=== PATIENT | male | born 1980 | race African-American/Black ===

== ENCOUNTER 2020-11-07 01:38 | Inpatient (IN) | payer OTHER ==
[2020-11-07] VITALS (84 sets, daily range): BP systolic 100–145; BP diastolic 66–94
[~2020-11-07] VITALS: Ht 182.9 cm; Wt 91.4 kg
--- NOTE | ~2020-11-07 | EEG ---
[facility] [place] [address] ELECTROENCEPHALOGRAM Name: RAH OVALLE Room #: 236-P ADM IN M.R.#: [id number] Admission: 11/07/20 Attend Phys: Jose E Patel MD Discharge: Date of : 80 Report #: [id number] THIS REPORT FOR: //name// DATE OF SERVICE: 11/07/2020 This patient is being evaluated for the possibility of seizures after cardiac arrest. EEG was done when the patient is on sedation. EEG was done by placing the electrode by standard 10-20 system of electrode placement. Both referential and sequential montages were used for recording. Background activity is difficult to determine because there is low voltage and barely perceptible but the patient is on sedation. Intermittently, the patient continued to have epileptiform activities. Some suggestion of burst suppression is present, but is not typical for burst suppression. IMPRESSION: This is an abnormal EEG because of very low voltage activity is present and epileptiform activity also appeared to be present. Clinical correlation is recommended. By: [id number] Thanh Damon MD /nt
--- NOTE | ~2020-11-07 | HC ---
[facility] [place] [address] CONSULTATION Name: RAH OVALLE JR Room #: 236-P ADM IN M.R.#: [id number] Admission: 11/07/20 Attend Phys: Jose E Patel MD Discharge: Date of : 80 Report #: [id number] THIS REPORT FOR: cc: FAM - Family physician unknown FAM - Family physician unknown Thanh Damon MD ~ DATE OF SERVICE: 11/07/2020 HISTORY OF PRESENT ILLNESS: This 40-year-old male patient who was seen by me for hypoxic encephalopathy. This patient has a history of polysubstance abuse. He has a cardiac arrest with significant amount of downtime. He is having some unusual movement of the eyes and body, which is difficult to tell if it was posturing or any seizure activity. The patient is on benzodiazepine and he is also on propofol. In spite of that, he is having those activity. He is also on Keppra. REVIEW OF SYSTEMS: From the record, it looks like the patient has a history of polysubstance abuse. He smokes as well as drink alcohol. He had what looks like a cardiac arrest with prolonged downtime. Now, he is on hypothermia protocol. This was his relevant 14-point review of system, which is available. PAST MEDICAL HISTORY: Unavailable in this patient, but looks like he has polysubstance abuse for a long period of time. SOCIAL HISTORY: He smokes or drinks and use drugs. FAMILY HISTORY: Unavailable. PHYSICAL EXAMINATION: Pretty limited. He is unresponsive to pain and verbal stimuli. Cranial nerve examination was attempted. His pupils are pinpoint and does not appear to be reactive. He has no plantar and in fact has no response or reflexes. He is intubated. He is on a vent. His blood pressure is maintained at 114/81, the white count is 9.3. He did have a CT scan of the head on admission and that appeared to be showing some early edema even at early stage. His respirations 16, pulse is 48, temperature is 98.5 because he is on hypothermia protocol. LABORATORY DATA: His WBC count is normal. GFR is normal. IMPRESSION: This patient appeared to have hypoxic encephalopathy. He will need a repeat CT in 24-48 hours to see how his edema looks. We will get an EEG even if he is on hypothermia protocol to see if any seizure activity is going on. If no seizure activity is there we will consider posturing and if seizure activity is there, then we will treat more aggressively. Nurses tell me it is difficult to increase his propofol because his vital sign becomes altered. [place] [address] CONSULTATION Name: RAH OVALLE KANDI Room #: 236-P [facility] IN M.R.#: [id number] Admission: 11/07/20 Attend Phys: Jose E Patel MD Discharge: Date of : 80 Report #: [id number] put him on Depakote. We will await the EEG. Thank you very much for this referral. By: 1226 [id number] Thanh Damon MD /nt
[~2020-11-07 01:38] MED LIST: FLEXERIL PO; HALDOL5 MG/1 ML IJ; IBUPROFEN 800800 M1 PO; NORCO 5-325 TA1 EACH PO
[2020-11-07 01:57] LABS: HEMATOCRIT 42.4 % (42.0-52.0); MCH 31.1 pg (26.0-34.0); MCV 94.1 fL (80.0-100.0); PLATELET COUNT 271 thou/uL (150-400); RDW 14.9 % (10.5-14.5); WBC 8.2 thou/uL (4.0-11.0)
[2020-11-07 02:11] LABS: BE(vivo) -12.8 mmol/L (-2 to +3); HCO3 16.6 mmol/L (22.0-26.0); pH 7.122 (7.360-7.450); sO2 99.6 % (92.0-98.0)
[2020-11-07 02:11] LABS: INR 1.02; PROTIME 11.1 Seconds (9.3-11.4)
[2020-11-07 02:15] LABS: ALBUMIN 3.5 g/dL (3.4-5.0); ANION GAP 21 mmol/L (7-16); BUN 13 mg/dL (7-18); CALCIUM 8.3 mg/dL (8.5-10.1); CHLORIDE 101 mmol/L (98-107); CO2 22 mmol/L (21-32); GLUCOSE 265 mg/dL (74-106); SGOT 156 U/L (15-37); SGPT 199 U/L (16-63); SODIUM 144 mmol/L (136-145); TOTAL BILIRUBIN 0.2 mg/dL (0.2-1.0); TOTAL PROTEIN 7.3 g/dL (6.4-8.2); TROPONIN-I <0.06 ng/mL (<0.06)
[2020-11-07 02:18] LABS: POTASSIUM 2.8 mmol/L (3.5-5.1)
[2020-11-07] MEDS ORDERED: DIVALPROEX SOD500 M1 PO (02:57)
[2020-11-07] MEDS ORDERED: BENZTROPINE MES1 MG PO (02:57)
[2020-11-07] MEDS ORDERED: PROAIR HFA8.5 GM INH (02:57)
[2020-11-07] MEDS ORDERED: CLARITIN10 M3 PO (02:58)
--- NOTE | 2020-11-07 02:58 | NUR ---
IV #4-#18 RIGHT FOREARM, IV#5-#20 RIGHT WRIST. ALL PLACED WITH 1 STICK, TRANS- PARENT DRESSINGS WITH PUMPS IN PLACE.
[2020-11-07 03:24] LABS: ABSOLUTE NEUTROPHILS 2.2 thou/uL (1.4-8.2)
[2020-11-07 03:25] LABS: PLATELET ESTIMATE NORMAL
[2020-11-07 03:49] LABS: HCO3 24.6 mmol/L (22.0-26.0); PCO2 32.7 mmHg (35.0-45.0); PO2 85.6 mmHg (80.0-100.0); pH 7.494 (7.360-7.450); sO2 97.2 % (92.0-98.0)
[2020-11-07 05:51] LABS: ABSOLUTE NEUTROPHILS 5.9 thou/uL (1.4-8.2); BASOPHILS 0.4 % (0.0-2.0); EOSINOPHILS 0.2 % (0.0-3.0); HEMATOCRIT 46.2 % (42.0-52.0); HEMOGLOBIN 15.4 gm/dL (14.0-18.0); LYMPHOCYTES 10.7 % (24.0-44.0); MCH 30.7 pg (26.0-34.0); MCHC 33.3 g/dL (28.0-37.0); MCV 92.3 fL (80.0-100.0); MONOCYTES 3.7 % (1.0-8.0); PLATELET COUNT 268 thou/uL (150-400); RDW 14.6 % (10.5-14.5); WBC 6.9 thou/uL (4.0-11.0)
[2020-11-07 06:01] LABS: CALCIUM 8.3 mg/dL (8.5-10.1); CREATININE 1.6 mg/dL (0.7-1.3)
[2020-11-07 06:10] LABS: MAGNESIUM 1.8 mg/dL (1.8-2.4); PHOSPHORUS 3.3 mg/dL (2.5-4.9)
[2020-11-07 06:14] LABS: POTASSIUM 4.8 mmol/L (3.5-5.1)
--- NOTE | 2020-11-07 06:14 | NUR ---
PT ARRIVED TO ICU FROM ER APPROX 0445, INTUBATED, ON PROPOFOL GTT AT 15 MCG/KG/MIN, EYES RHYTHMICALLY MOVING UP AND DOWN/BLINKING, ARMS AND LEGS JERKING INTERMITTENTLY. TEMP 33.8 ON ARRIVAL VIA ANDINO TEMP PROBE. PLACED ON ARTIC SUN PER ORDERS FROM FERMIN RODRIGUEZ, SA 60-70'S, BP STABLE 120'S. NOTIFIED MICHAEL OF SEIZURE ACTIVITY, GAVE 2MG ATIVAN IV, JERKING HAS SLOWED. PENDING LABS AT THIS TIME
[2020-11-07 06:15] LABS: TROPONIN-I 0.85 ng/mL (<0.06)
--- NOTE | 2020-11-07 06:56 | NUR ---
spoke with mother, gave update, policy regarding visitation and authorized contact
--- NOTE | 2020-11-07 07:04 | EKG ---
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 : 1980 Requested By: Ness Araujo Order Number: [id number] MD: Reji Dooley Measurements Intervals [place] Rate: 106 P: 0 WY: 262 QRS: 33 QRSD: 100 T: 5 QT: 271 QTc: 360 Interpretive Statements Sinus tachycardia Prolonged WY interval Right atrial enlargement RSR' in V1 or V2, probably normal variant Probable left ventricular hypertrophy Borderline T abnormalities, inferior leads No previous ECG available for comparison Electronically Signed On 11-07-2020 7:04:15 CDT by Reji Dooley [email or web address] <ELECTRONICALLY SIGNED> By: Reji Dooley MD, [facility] 11/07/20 0704 014 014 Reji Dooley MD, FACC /EPI
--- NOTE | 2020-11-07 07:20 | NUR ---
RN CAME ONTO THE UNIT, CXR REPORT AWAITING. RN CALLED RADIOLOGY, SPOKE WITH CXR TECH MYLENE. PER PRELIM REPORT ET/GTUBE BOTH IN GOOD POSITION. RN PROCEEDING WITH USAGE.
[2020-11-07 07:26] LABS: APTT 21.9 Seconds (24.5-32.8); PROTIME 10.3 Seconds (9.3-11.4)
--- NOTE | 2020-11-07 08:31 | NUR ---
chart review. outside hospital cardiac arrest, with friends with when went down. in via ambulance to ed. remains on vent. noted lives with his mother. will cont following as needed for dc needs.
[2020-11-07 08:42] LABS: D-DIMER 8.56 ug/mLFEU (0.19-0.50)
--- NOTE | 2020-11-07 09:23 | EKG ---
[address] [place] [address] ELECTROCARDIOGRAM REPORT Name: RAH OVALLE Room #: 236-P ADM IN M.R.#: [id number] Admission: 11/07/20 Attend Phys: Jose E Patel MD Discharge: Date of : 80 Report #: [id number] [facility] Test Date: 2020-11-07 Test Time: 08:37:56 Pat Name: RAH OVALLE Department: Room: 236 P Gender: M Parole Director: FLORIN : 1980 Requested By: Ondina Lozoya Order Number: [id number] MD: Reji Dooley Measurements Intervals [place] Rate: 48 P: 51 CT: 168 QRS: 59 QRSD: 125 T: 34 QT: 570 QTc: 510 Interpretive Statements Sinus bradycardia Nonspecific intraventricular conduction delay ST elev, probable normal early repol pattern Baseline wander in lead(s) V6 Compared to ECG 11/07/2020 01:42:54 Intraventricular conduction delay now present ST (T wave) deviation now present Sinus tachycardia no longer present First degree AV block no longer present Atrial abnormality no longer present T-wave abnormality no longer present Electronically Signed On 11-07-2020 9:23:37 CDT by Reji Dooley [email or web address] <ELECTRONICALLY SIGNED> By: Reji Dooley MD, [facility] 11/07/20 0923 6 6 Reji Dooley MD, [facility] /EPI
--- NOTE | 2020-11-07 10:05 | 2DMMODE ---
[facility] [address] [place] [address] 2 D/M-MODE ECHOCARDIOGRAM Name: RAH OVALLE Room #: 236-P ADM IN M.R.#: [id number] Admission: 11/07/20 Attend Phys: Jose E Patel MD Discharge: Date of : 80 Report #: [id number] THIS REPORT FOR: cc: FAM - Family physician unknown FAM - Family physician unknown Noé Barragan MD ~ APPROVED REPORT Study performed: 11/07/2020 08:56:00 EXAM: Comprehensive 2D, Doppler, and color-flow Echocardiogram Patient Location: ICU Room #: 236 Status: routine BSA: 1.90 HR: 47 bpm BP: 116/80 mmHg Rhythm: NSR/seth Other Information Study Quality: Good/patient on vent Indications Status post cardiopulmonary arrest. Polysubstance abuse. 2D Dimensions RVDd: 43.76 mm IVSd: 9.84 (7-11mm) LVOT Diam: 19.69 (18-24mm) LVDd: 41.79 mm PWd: 9.20 (7-11mm) LVDs: 36.19 (25-40mm) Left Atrium: 32.97 (27-40mm) Aortic Root: 28.95 mm Volumes Left Atrial Volume (Systole) Single Plane 4CH: 36.66 mL Single Plane 2CH: 47.06 mL LA ESV Index: 24.00 mL/m2 Aortic Valve AoV Peak Cruzito.: 0.76 m/s AO Peak Gr.: 2.33 mmHg LVOT Max P.93 mmHg LVOT Max V: 0.69 m/s [facility] [address] [place] [address] 2 D/M-MODE ECHOCARDIOGRAM Name: RAH OVALLE Room #: 236-P [facility]#: [id number] Admission: 11/07/20 Attend Phys: Jose E Patel MD Discharge: Date of : 80 Report #: [id number] AGUSTO Vmax: 2.77 cm2 Mitral Valve E/A Ratio: 4.2 MV Decel. Time: 199.56 ms MV E Max Cruzito.: 0.59 m/s MV A Cruzito.: 0.14 m/s MV PHT: 57.87 ms IVRT: 143.02 ms Pulmonary Valve PV Peak Cruzito.: 0.65 m/s PV Peak Gr.: 1.71 mmHg Tricuspid Valve TR Peak Cruzito.: 2.67 m/s RAP Estimate: 10.00 mmHg TR Peak Gr.: 29.00 mmHg PA Pressure: 39.00 mmHg Left Ventricle The left ventricle is normal size. There is normal left ventricular wall thickness. Left ventricular systolic function is mildly decreased. LVEF is 45-50%. The left ventricular diastolic function is normal. Right Ventricle The right ventricle is normal size. The right ventricular systolic function is normal. Atria The left atrium size is normal. The right atrium size is normal. Aortic Valve The aortic valve is normal in structure. No aortic regurgitation is present. There is no aortic valvular stenosis. Mitral Valve The mitral valve is normal in structure. Trace mitral regurgitation. No evidence of mitral valve stenosis. Tricuspid Valve The tricuspid valve is normal in structure. Moderate tricuspid regurgitation. Estimated PAP 35-40mmHg. Pulmonic Valve The pulmonary valve is normal in structure. Trace pulmonic [facility] [place] [address] 2 D/M-MODE ECHOCARDIOGRAM Name: RAH OVALLE Room #: 236-P ADM IN M.R.#: [id number] Admission: 11/07/20 Attend Phys: Jose E Patel MD Discharge: Date of : 80 Report #: [id number] regurgitation. Great Vessels The aortic root is normal in size. The ascending aorta is normal in size. IVC is normal in size and collapses <50% with inspiration. Pericardium There is no pericardial effusion. <Conclusion> The left ventricle is normal size. Left ventricular systolic function is mildly decreased. LVEF is 45-50%. The right ventricle is normal size. The right ventricular systolic function is normal. The aortic valve is normal in structure. The mitral valve is normal in structure. Trace mitral regurgitation. The tricuspid valve is normal in structure. Moderate tricuspid regurgitation. Estimated PAP 35-40mmHg. The pulmonary valve is normal in structure. Trace pulmonic regurgitation. The aortic root is normal in size. There is no pericardial effusion. <ELECTRONICALLY SIGNED> By: Noé Barragan MD 11/07/20 1005 1005 100 Noé Barragan MD /INF
[2020-11-07 10:11] LABS: URINE BILIRUBIN NEGATIVE (Negative); URINE BLOOD 1+ (Negative); URINE CLARITY CLEAR; URINE COLOR YELLOW; URINE GLUCOSE-RANDOM* NEGATIVE (Negative); URINE KETONES 2+ (Negative); URINE LEUKOCYTES-REFLEX NEGATIVE (Negative); URINE NITRITE-REFLEX NEGATIVE (Negative); URINE PROTEIN (DIPSTICK) NEGATIVE (Negative); URINE UROBILINOGEN 0.2 E.U./dl (0.2-1.0)
[2020-11-07 10:19] LABS: AMP/METHAMP Negative (Negative); BARBITURATES Negative (Negative); BENZODIAZEPINES Negative (Negative); COCAINE POSITIVE (Negative); METHADONE Negative (Negative); OPIATES Negative (Negative); PCP Negative (Negative)
[2020-11-07 10:31] LABS: BACTERIA-REFLEX None Seen /HPF (None Seen); CASTS None Seen /LPF (None Seen); CRYSTALS None Seen /LPF (None Seen); MUCUS 0-3 Light strn/LPF (None Seen); SQUAMOUS 0-3 Few /LPF (0-3); URINE RBC 3-10 Few /HPF (0-2); URINE WBC-REFLEX 0-5 Rare /HPF (0-5)
[2020-11-07 11:47] LABS: ABSOLUTE NEUTROPHILS 8.1 thou/uL (1.4-8.2); BASOPHILS 0.2 % (0.0-2.0); EOSINOPHILS 0.1 % (0.0-3.0); HEMOGLOBIN 14.7 gm/dL (14.0-18.0); LYMPHOCYTES 6.5 % (24.0-44.0); MCH 30.6 pg (26.0-34.0); MCHC 33.5 g/dL (28.0-37.0); MCV 91.3 fL (80.0-100.0); MONOCYTES 5.8 % (1.0-8.0); PLATELET COUNT 228 thou/uL (150-400); POLYS 87.4 % (36.0-66.0); RBC 4.81 mil/uL (4.50-6.00); RDW 14.5 % (10.5-14.5); WBC 9.3 thou/uL (4.0-11.0)
[2020-11-07 12:03] LABS: APTT 26.1 Seconds (24.5-32.8); PROTIME 10.9 Seconds (9.3-11.4)
[2020-11-07 12:06] LABS: CREATININE 1.2 mg/dL (0.7-1.3); MAGNESIUM 1.8 mg/dL (1.8-2.4); PHOSPHORUS 2.9 mg/dL (2.5-4.9)
[2020-11-07 12:18] LABS: TROPONIN-I 3.01 ng/mL (<0.06)
--- NOTE | 2020-11-07 12:35 | NUR ---
VAT CONSULTED FOR CVAD. PT'S LABS,ORDER AND CONSENT VERIFIED. RIJ WAS WIDELY PATENT WITH USG. 6FR TL JACC 25CM INSERTED TO 6CM EXTERNAL. PT TOLERATED WELL. STAT CXR CONFIRMED RIJ AT [facility]. RELEASED FOR IMMEDIATE USE PER PROTOCOL
[2020-11-07 17:59] LABS: BASOPHILS 0.1 % (0.0-2.0); HEMATOCRIT 44.1 % (42.0-52.0); HEMOGLOBIN 14.8 gm/dL (14.0-18.0); LYMPHOCYTES 4.9 % (24.0-44.0); MCH 30.9 pg (26.0-34.0); MCHC 33.6 g/dL (28.0-37.0); MONOCYTES 4.9 % (1.0-8.0); PLATELET COUNT 221 thou/uL (150-400); POLYS 90.1 % (36.0-66.0); RBC 4.79 mil/uL (4.50-6.00); RDW 14.5 % (10.5-14.5); WBC 12.2 thou/uL (4.0-11.0)
[2020-11-07 18:10] LABS: CALCIUM 8.3 mg/dL (8.5-10.1); CREATININE 1.1 mg/dL (0.7-1.3); PHOSPHORUS 2.8 mg/dL (2.6-4.7); POTASSIUM 4.8 mmol/L (3.5-5.1)
[2020-11-07 18:50] LABS: APTT 28.8 Seconds (24.5-32.8); PROTIME 10.9 Seconds (9.3-11.4)
[2020-11-07 23:06] LABS: GLYCOHEMOGLOBIN (HGB A1C) 5.4 % (4.8-5.6)
[2020-11-08] VITALS (97 sets, daily range): BP systolic 105–137; BP diastolic 54–89
[2020-11-08 01:32] LABS: ABSOLUTE NEUTROPHILS 12.8 thou/uL (1.4-8.2); BASOPHILS 0.3 % (0.0-2.0); HEMOGLOBIN 14.2 gm/dL (14.0-18.0); LYMPHOCYTES 4.6 % (24.0-44.0); MCH 31.4 pg (26.0-34.0); MCHC 34.6 g/dL (28.0-37.0); MCV 90.8 fL (80.0-100.0); MONOCYTES 3.7 % (1.0-8.0); PLATELET COUNT 210 thou/uL (150-400); POLYS 91.4 % (36.0-66.0); RBC 4.52 mil/uL (4.50-6.00); RDW 14.6 % (10.5-14.5)
[2020-11-08 01:39] LABS: APTT 32.8 Seconds (24.5-32.8); PROTIME 10.9 Seconds (9.3-11.4)
[2020-11-08 01:40] LABS: CALCIUM 7.7 mg/dL (8.5-10.1); MAGNESIUM 1.9 mg/dL (1.8-2.4); PHOSPHORUS 3.6 mg/dL (2.5-4.9); POTASSIUM 4.1 mmol/L (3.5-5.1)
[2020-11-08 06:43] LABS: ABSOLUTE NEUTROPHILS 13.9 thou/uL (1.4-8.2); BASOPHILS 0.2 % (0.0-2.0); HEMATOCRIT 42.3 % (42.0-52.0); HEMOGLOBIN 13.9 gm/dL (14.0-18.0); LYMPHOCYTES 4.6 % (24.0-44.0); MCH 30.2 pg (26.0-34.0); MCV 91.6 fL (80.0-100.0); MONOCYTES 6.6 % (1.0-8.0); PLATELET COUNT 225 thou/uL (150-400); POLYS 88.6 % (36.0-66.0); RBC 4.61 mil/uL (4.50-6.00); RDW 14.3 % (10.5-14.5); WBC 15.7 thou/uL (4.0-11.0)
[2020-11-08 07:06] LABS: APTT 33.2 Seconds (24.5-32.8); INR 1.01
[2020-11-08 07:08] LABS: CALCIUM 7.8 mg/dL (8.5-10.1); MAGNESIUM 1.8 mg/dL (1.8-2.4); PHOSPHORUS 3.5 mg/dL (2.6-4.7)
--- NOTE | 2020-11-08 09:18 | NUR ---
chart review. he remains on [facility], left message for his mom charlee [phone], requested a call back. will cont following as needed for dc needs.
--- NOTE | 2020-11-08 13:06 | EKG ---
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 : 1980 Requested By: Ondina Lozoya Order Number: [id number] MD: Donal Gamble Measurements Intervals [place] Rate: 65 P: 63 FL: 140 QRS: 56 QRSD: 99 T: 15 QT: 493 QTc: 513 Interpretive Statements Sinus rhythm RSR' in V1 or V2, probably normal variant ST elev, probable normal early repol pattern Prolonged QT interval Compared to ECG 11/07/2020 08:37:56 No significant change was found Electronically Signed On 11-08-2020 13:05:55 CDT by Donal Gamble [email or web address] <ELECTRONICALLY SIGNED> By: Donal Gamble MD, [facility] 11/08/20 1305 0741 0741 Donal Gamble MD, [facility] /EPI
[2020-11-08 13:11] LABS: BE(vivo) -2.5 mmol/L (-2 to +3); HCO3 20.4 mmol/L (22.0-26.0); PCO2 30.4 mmHg (35.0-45.0); PO2 77.5 mmHg (80.0-100.0); pH 7.445 (7.360-7.450); sO2 96.1 % (92.0-98.0)
--- NOTE | 2020-11-08 15:54 | NUR ---
FROM RR 1445. PT IMMED C/O PAIN FROM ANDINO CATHETER.WARM BLANKET ACROSS LOWER ABD.STATES OP PAIN IS VERY LITTLE.BPS LOW 80'S ON ARRIVAL. HIMA (CV PA) IN & 250ML NS FLD BOLUS GIVEN. BPS NOW >100mmHG. AT BEDSIDE.MUCH REASSURANCE GIVEN TO PT & . LIGHT WT ICEPACK TO RT NECK.--VW
--- NOTE | 2020-11-08 18:49 | NUR ---
patient reaches normothermia at 1320. will continue normothermia per hypothermia protocol. adequate urine output. family (mother and father) at bedside today to visit patient. patient over breathes ventilator rr settings. no corneal reflex, no cough/gag, pupils sluggish. continues on sedation. og to lis. no spontaneous movements.
[2020-11-08 19:41] LABS: CALCIUM 7.3 mg/dL (8.5-10.1); CREATININE 1.6 mg/dL (0.7-1.3); POTASSIUM 3.2 mmol/L (3.5-5.1)
[2020-11-08 19:45] LABS: TROPONIN-I 0.79 ng/mL (<0.06)
[2020-11-09] VITALS (87 sets, daily range): BP systolic 118–183; BP diastolic 64–104
[2020-11-09 05:25] LABS: HEMATOCRIT 37.1 % (42.0-52.0); MCH 31.9 pg (26.0-34.0); MCHC 34.9 g/dL (28.0-37.0); MCV 91.4 fL (80.0-100.0); RBC 4.06 mil/uL (4.50-6.00); RDW 14.8 % (10.5-14.5); WBC 13.9 thou/uL (4.0-11.0)
[2020-11-09 05:26] LABS: CALCIUM 7.4 mg/dL (8.5-10.1); CREATININE 1.2 mg/dL (0.7-1.3)
[2020-11-09 05:52] LABS: POTASSIUM 2.9 mmol/L (3.5-5.1)
--- NOTE | 2020-11-09 07:41 | NUR ---
AT APPROX 0230 PT BECAME HYPERTENSIVE. WHEN THIS RN CHECKED HIS PULIPS THEY WERE FIXED AND DILATED. I CALLED FERMIN RODRIGUEZ WHOM SUGGESTED I CALL NEURO. AT APPROX 0430 [employer] NEUROLOGIST RECOMMENDED A REPEAT NONCONTRAST CT. DR KOEHLER CALLED AND UPDATED OF PLAN. CT SCHEDULED FOR 0800.
--- NOTE | 2020-11-09 11:27 | NUR ---
Nutrition: pt admit to ICU with post cardiac arrest. Low deanna score indicated and pt NPO x 2 days in ICU. Normothermia has been achieved. Pt without gag, cough or corneal reflex. Discussion in rounds, plan reassess at 48 hrs post normothermia per neuro. Poor outlook noted and no plans to start nutrition at present. Will follow.
[2020-11-09 11:37] LABS: ALBUMIN 2.5 g/dL (3.4-5.0); DIRECT BILIRUBIN < 0.1 mg/dL (<0.1-0.2); SGOT 85 U/L (15-37); SGPT 89 U/L (16-63); TOTAL BILIRUBIN 0.3 mg/dL (0.2-1.0)
--- NOTE | 2020-11-09 12:12 | NUR ---
PATIENT'S AUTO AIR CONDITIONING MECHANIC IS BISHOP TABATHA RINCON FROM [facility]. APPRENTLY THERE ARE OTHER MINISTERS "IN THE FAMILY", BUT THEY WILL NEED TO GET ADMINSTRATIVE APPROVAL A FAMILY MEMBER. IF APPROVED THAT PERSON WOULD BE ONE OF THE TWO VISITORS ALLOWED IN THE ROOM WITH THE PATIENT. CHAPLAIN RODRÍGUEZ BREWER
[2020-11-09 12:53] LABS: CALCIUM 7.6 mg/dL (8.5-10.1); CREATININE 1.2 mg/dL (0.7-1.3); POTASSIUM 3.2 mmol/L (3.5-5.1)
--- NOTE | 2020-11-09 18:41 | NUR ---
PATIENT NOT PROGRESSING TOWARDS PLAN OF CARE. PATIENT TAKEN TO CT AT 0815 FOR NEURO STATUS CHANGES. [address] HAY SPOKE WITH PATIENT MOTHER ABOUT PATIENT STATUS. MAINTAINED PATIENT MIDLINE AND HOB 30 DEGREES. SEE NEURO ASSESSMENTS FOR MORE INDEPTH ASSESSEMENT. PATIENT RECIEVING POTASSIUM REPLACEMENT. LARGE URINE OUTPUT. DR KOEHLER CONSULTED RENAL FOR SUSPECTED DIABETES INSIPIDUS. NORMOTHERMIA TO BE MAINTAINED FOR 48HOURS. WILL BE COMPLETE AT 1330 11/10. MOTHER SAW PATIENT TODAY. UPDATED MTN TODAY TWICE ABOUT PATIENT STATUS.
[2020-11-09 21:30] LABS: CREATININE 0.7 mg/dL (0.7-1.3)
[2020-11-09 21:33] LABS: POTASSIUM 2.1 mmol/L (3.5-5.1)
--- NOTE | 2020-11-09 22:07 | NUR ---
This RN spoke to Dr. Pickard regarding critical BMP results, advised to call Dr. Beatriz Gonzalez for more direction. Critical results called to Dr. Leija at 0002. New orders received to up D5W rate and to initiate desmopressin Q12 hours. Also discussed large urine output rate, and clinical appearance. Told to monitor AM labs and that he will round on patient in AM. Will continue to monitor.
[2020-11-10] VITALS (24 sets, daily range): BP systolic 87–179; BP diastolic 41–108
[2020-11-10 05:38] LABS: HEMATOCRIT 24.2 % (42.0-52.0); MCH 30.6 pg (26.0-34.0); MCHC 33.3 g/dL (28.0-37.0); RBC 2.63 mil/uL (4.50-6.00); RDW 14.7 % (10.5-14.5); WBC 5.9 thou/uL (4.0-11.0)
[2020-11-10 05:53] LABS: CREATININE 1.5 mg/dL (0.7-1.3)
[2020-11-10 05:57] LABS: POTASSIUM 3.6 mmol/L (3.5-5.1)
[2020-11-10 05:59] LABS: HEMOGLOBIN 8.1 gm/dL (14.0-18.0)
--- NOTE | 2020-11-10 06:12 | NUR ---
This RN spoke to MTN this morning at 0538. Updated on patient status and current plan. Was told to call with any changes in status or plan.
--- NOTE | 2020-11-10 15:51 | NUR ---
PT NOT PROGRESSING TOWARDS DISCHARGE, ARCTIC SUN, PADDING TAKEN OFF AT 1330 PER PROTOCOL, AFTER THAT, PT WAS NOT REGULATING ON TEMPERATURE, BAIRHUGGER HAD TO BE PLACED. CURRENTLY AT 35.7C NEUROLOGIST SAW THE PT WHILE FAMILY WAS IN ROOM, PLAN MOVING FORWARD IS TO DECREASE/DC SEDATION SO MOST ACCURATE READING OF NEUROLOGIC STATUS CAN BE ASSESSED. FAMILY TO SEE THE NEUROLOGIST AT 1000 TOMORROW MORNING FOR THIS ASSESSMENT. PT'S CURRENT CLINICAL PICTURE SHOWS AFTER TITRATING PROPOFOL FROM 40 TO 0 NO CHANGES IN SEDATION, ONLY BLOOD PRESSURE AROSE. RN CONTACTED THE NEUROLOGIST, IN RELATION TO CEREBRAL EDEMA, PER , SHE WOULD LIKE THE BP AROUND 140/90 AND WANTED PROPOFOL ON AT 10 AROUND THE CLOCK UNTIL 30 MINUTES PRIOR TO 1000 TOMORROW MORNING WELL , NOC RN TO TITRATE THE VERSED DOWN POSSIBLE WHILE PT IS NOT PRESENTING SZR LIKE ACTIVITIES. APPEARS IF FAMILY WILL HAVE MORE INFORMATION TO CREATE A PLAN OF CARE FOR THE PT AFTER TOMORROWS MEETING WITH NEURO. RN TO CONTINUE POC, AND PROMOTE COMFORT.
[2020-11-10 19:17] LABS: CALCIUM 7.9 mg/dL (8.5-10.1); CREATININE 1.3 mg/dL (0.7-1.3); POTASSIUM 3.2 mmol/L (3.5-5.1)
[2020-11-11] VITALS (25 sets, daily range): BP systolic 104–147; BP diastolic 53–91
--- NOTE | 2020-11-11 03:55 | NUR ---
This RN spoke to [facility] at 0350. Updated on status, medications and clinical presentations. Was told a social sciences department chair from [facility] will be visiting at 0800.
[2020-11-11 03:59] LABS: HEMATOCRIT 32.6 % (42.0-52.0); MCHC 32.5 g/dL (28.0-37.0); MCV 92.3 fL (80.0-100.0); RBC 3.53 mil/uL (4.50-6.00); RDW 14.8 % (10.5-14.5)
[2020-11-11 04:13] LABS: HEMOGLOBIN 10.6 gm/dL (14.0-18.0)
[2020-11-11 04:15] LABS: CALCIUM 7.5 mg/dL (8.5-10.1); CREATININE 1.2 mg/dL (0.7-1.3); POTASSIUM 3.1 mmol/L (3.5-5.1)
[2020-11-11 13:49] LABS: ABSOLUTE NEUTROPHILS 4.1 thou/uL (1.4-8.2); BASOPHILS 0.5 % (0.0-2.0); EOSINOPHILS 3.5 % (0.0-3.0); HEMATOCRIT 34.3 % (42.0-52.0); HEMOGLOBIN 11.9 gm/dL (14.0-18.0); LYMPHOCYTES 23.6 % (24.0-44.0); MCHC 34.6 g/dL (28.0-37.0); MCV 89.6 fL (80.0-100.0); MONOCYTES 9.9 % (1.0-8.0); PLATELET COUNT 174 thou/uL (150-400); POLYS 62.5 % (36.0-66.0); RBC 3.83 mil/uL (4.50-6.00); RDW 14.3 % (10.5-14.5); WBC 6.6 thou/uL (4.0-11.0)
[2020-11-11 14:08] LABS: ALBUMIN 1.9 g/dL (3.4-5.0); APTT 33.1 Seconds (24.5-32.8); CALCIUM 7.6 mg/dL (8.5-10.1); CREATININE 1.1 mg/dL (0.7-1.3); DIRECT BILIRUBIN 0.2 mg/dL (<0.1-0.2); INR 0.91; MAGNESIUM 1.3 mg/dL (1.8-2.4); PHOSPHORUS 3.5 mg/dL (2.6-4.7); POTASSIUM 3.1 mmol/L (3.5-5.1); TOTAL BILIRUBIN 0.6 mg/dL (0.2-1.0); TOTAL PROTEIN 5.9 g/dL (6.4-8.2)
[2020-11-11 15:56] LABS: URINE BILIRUBIN NEGATIVE (Negative); URINE BLOOD NEGATIVE (Negative); URINE CLARITY CLEAR; URINE COLOR YELLOW; URINE GLUCOSE-RANDOM* NEGATIVE (Negative); URINE KETONES NEGATIVE (Negative); URINE LEUKOCYTES-REFLEX NEGATIVE (Negative); URINE NITRITE-REFLEX NEGATIVE (Negative); URINE PROTEIN (DIPSTICK) NEGATIVE (Negative); URINE SPECIFIC GRAVITY 1.015 (1.005-1.035); URINE UROBILINOGEN 0.2 E.U./dl (0.2-1.0)
--- NOTE | 2020-11-11 16:56 | NUR ---
PTS FAMILY HAD A DISCUSSION WITH THE NEUROLOGIST TODAY WITH RN PRESENT IN THE ROOM. PER PT'S FAMILY'S REQUEST THEY DO NOT WISH TO PURSUE FURTHER CARE FOR THE PT AND OPTED FOR COMFORT CARE. MTN HAD STEPPED IN AFTER COMFORT CARE DECISION WAS MADE AND SPOKE WITH THE FAMILY., REP ALL WAS HERE. FAMILY DECIDED FOR ORGAN DONATION FOR THE FAMILY. THROUGHOUT THE DAY THIS RN WORKED WITH TWO STAFF MEMBERS FROM [employer] TO APPROPERIATELY ORDER ALL LABS REQUIRED FOR THIS PT. PT IS EXPECTED TO GET A NEURO EVAL SOMETIME TOMORROW MORNING INCLUDING AN APNEA TEST, AND ONCE FINALIZED MTN WILL THEN TAKE THIS PT OVER AND ORGAN DONATION PROCESS IS EXPECTED TO PROCEED. RN CONTINUING WITH CARE/ORDERS AT THIS POINT UNTIL THEN
[2020-11-11 21:00] LABS: BE(vivo) -0.4 mmol/L (-2 to +3); PCO2 29.2 mmHg (35.0-45.0); PO2 110.2 mmHg (80.0-100.0); pH 7.495 (7.360-7.450); sO2 98.4 % (92.0-98.0)
[2020-11-11 22:48] LABS: ABSOLUTE NEUTROPHILS 3.2 thou/uL (1.4-8.2); BASOPHILS 0.4 % (0.0-2.0); EOSINOPHILS 3.9 % (0.0-3.0); HEMATOCRIT 33.5 % (42.0-52.0); HEMOGLOBIN 11.5 gm/dL (14.0-18.0); LYMPHOCYTES 27.8 % (24.0-44.0); MCH 31.1 pg (26.0-34.0); MCHC 34.3 g/dL (28.0-37.0); MCV 90.6 fL (80.0-100.0); MONOCYTES 9.8 % (1.0-8.0); PLATELET COUNT 168 thou/uL (150-400); POLYS 58.1 % (36.0-66.0); RDW 14.6 % (10.5-14.5); WBC 5.5 thou/uL (4.0-11.0)
[2020-11-11 23:04] LABS: ALBUMIN 1.7 g/dL (3.4-5.0); CALCIUM 7.6 mg/dL (8.5-10.1); CREATININE 1.4 mg/dL (0.7-1.3); DIRECT BILIRUBIN 0.2 mg/dL (<0.1-0.2); MAGNESIUM 1.8 mg/dL (1.8-2.4); PHOSPHORUS 3.4 mg/dL (2.6-4.7); POTASSIUM 3.1 mmol/L (3.5-5.1); TOTAL BILIRUBIN 0.6 mg/dL (0.2-1.0); TOTAL PROTEIN 5.5 g/dL (6.4-8.2)
[2020-11-11 23:05] LABS: APTT 37.9 Seconds (24.5-32.8); INR 0.94; PROTIME 10.3 Seconds (9.3-11.4)
[2020-11-11 23:10] LABS: FIBRINOGEN > 900 mg/dL (210-360)
[2020-11-12] VITALS (7 sets, daily range): BP systolic 93–118; BP diastolic 57–77
[2020-11-12 04:52] LABS: APTT 34.7 Seconds (24.5-32.8); INR 0.92; PROTIME 10.1 Seconds (9.3-11.4)
[2020-11-12 05:07] LABS: ABSOLUTE NEUTROPHILS 3.1 thou/uL (1.4-8.2); BASOPHILS 0.4 % (0.0-2.0); EOSINOPHILS 3.4 % (0.0-3.0); HEMATOCRIT 32.7 % (42.0-52.0); LYMPHOCYTES 25.6 % (24.0-44.0); MCH 30.6 pg (26.0-34.0); MCHC 33.5 g/dL (28.0-37.0); MCV 91.3 fL (80.0-100.0); MONOCYTES 12.4 % (1.0-8.0); PLATELET COUNT 146 thou/uL (150-400); POLYS 58.2 % (36.0-66.0); RBC 3.58 mil/uL (4.50-6.00); RDW 14.6 % (10.5-14.5); WBC 5.3 thou/uL (4.0-11.0)
[2020-11-12 05:17] LABS: ALBUMIN 1.7 g/dL (3.4-5.0); CALCIUM 7.6 mg/dL (8.5-10.1); CREATININE 1.4 mg/dL (0.7-1.3); DIRECT BILIRUBIN 0.2 mg/dL (<0.1-0.2); MAGNESIUM 2.3 mg/dL (1.8-2.4); PHOSPHORUS 3.4 mg/dL (2.6-4.7); POTASSIUM 3.5 mmol/L (3.5-5.1); TOTAL BILIRUBIN 0.5 mg/dL (0.2-1.0); TOTAL PROTEIN 5.6 g/dL (6.4-8.2)
--- NOTE | 2020-11-12 08:33 | NUR ---
MTN HERE THIS MORNING WISHING TO SPEAK WITH CARLOS DYSON, NO CHANGES OVER NIGHT REGARDING MENTATION. OFF OF SEDATION NOW FOR 24HRS. APNEA TESTING AT 0900.
[2020-11-12 10:38] LABS: HEMATOCRIT 32.8 % (42.0-52.0); MCH 30.2 pg (26.0-34.0); MCHC 33.5 g/dL (28.0-37.0); MCV 90.3 fL (80.0-100.0); PLATELET COUNT 148 thou/uL (150-400); RBC 3.63 mil/uL (4.50-6.00); RDW 14.5 % (10.5-14.5); WBC 4.9 thou/uL (4.0-11.0)
[2020-11-12 10:45] LABS: APTT 33.2 Seconds (24.5-32.8); INR 0.94; PROTIME 10.3 Seconds (9.3-11.4)
[2020-11-12 10:53] LABS: ALBUMIN 1.7 g/dL (3.4-5.0); CALCIUM 7.8 mg/dL (8.5-10.1); CREATININE 1.4 mg/dL (0.7-1.3); DIRECT BILIRUBIN 0.2 mg/dL (<0.1-0.2); MAGNESIUM 2.3 mg/dL (1.8-2.4); PHOSPHORUS 3.9 mg/dL (2.5-4.9); POTASSIUM 3.7 mmol/L (3.5-5.1); TOTAL BILIRUBIN 0.6 mg/dL (0.2-1.0); TOTAL PROTEIN 5.6 g/dL (6.4-8.2)
[2020-11-12 11:07] LABS: BE(vivo) 0.3 mmol/L (-2 to +3); HCO3 23.1 mmol/L (22.0-26.0); PCO2 31.5 mmHg (35.0-45.0); PO2 113.8 mmHg (80.0-100.0); pH 7.483 (7.360-7.450); sO2 98.5 % (92.0-98.0)
[2020-11-12 11:17] LABS: FIBRINOGEN > 860 mg/dL (210-360)
--- NOTE | 2020-11-12 11:53 | 2DMMODE ---
[facility] [place] [address] 2 D/M-MODE ECHOCARDIOGRAM Name: RAH OVALLE Room #: 236-P ADM IN M.R.#: [id number] Admission: 11/07/20 Attend Phys: Jose E Patel MD Discharge: Date of : 80 Report #: [id number] THIS REPORT FOR: cc: FAM - Family physician unknown FAM - Family physician unknown Matt Momin MD ~ APPROVED REPORT Study performed: 11/12/2020 10:56:01 EXAM: Comprehensive 2D, Doppler, and color-flow Echocardiogram Patient Location: ICU Room #: 236 Status: routine BSA: 1.90 HR: 76 bpm BP: 108/68 mmHg Rhythm: NSR Other Information Study Quality: Good Indications [facility]. 2D Dimensions RVDd: 32.11 mm IVSd: 11.42 (7-11mm) LVOT Diam: 20.16 (18-24mm) LVDd: 42.76 mm PWd: 9.18 (7-11mm) Ascending Ao: 29.61 (22-36mm) LVDs: 32.62 (25-40mm) Left Atrium: 34.31 (27-40mm) Aortic Root: 30.50 mm Volumes Left Atrial Volume (Systole) Single Plane 4CH: 45.66 mL Single Plane 2CH: 47.42 mL LA ESV Index: 26.00 mL/m2 Aortic Valve AoV Peak Cruzito.: 1.26 m/s AO Peak Gr.: 6.32 mmHg LVOT Max P.32 mmHg LVOT Max V: 0.91 m/s AGUSTO Vmax: 2.31 cm2 [facility] [address] [place] [address] 2 D/M-MODE ECHOCARDIOGRAM Name: RAH OVALLE Room #: 236-P [facility] IN ..#: [id number] Admission: 11/07/20 Attend Phys: Jose E Patel MD Discharge: Date of : 80 Report #: [id number] Mitral Valve E/A Ratio: 1.2 MV Decel. Time: 263.04 ms MV E Max Cruzito.: 0.68 m/s MV A Cruzito.: 0.59 m/s MV PHT: 76.28 ms IVRT: 76.12 ms Pulmonary Valve PV Peak Cruzito.: 0.89 m/s PV Peak Gr.: 3.19 mmHg Pulmonary Vein P Vein S: 0.33 m/s P Vein A: 0.28 m/s P Vein D: 0.45 m/s P Vein A Dur.: 107.3 msec P Vein S/D Ratio: 0.73 Tricuspid Valve TR Peak Cruzito.: 2.56 m/s RAP Estimate: 10.00 mmHg TR Peak Gr.: 26.29 mmHg PA Pressure: 36.00 mmHg Left Ventricle The left ventricle is normal size. There is normal left ventricular wall thickness. Left ventricular systolic function is normal. LVEF is 50-55%. The left ventricular diastolic function is normal. Right Ventricle The right ventricle is normal size. The right ventricular systolic function is normal. Atria The left atrium size is normal. The right atrium size is normal. Aortic Valve The aortic valve is normal in structure. No aortic regurgitation is present. There is no aortic valvular stenosis. Mitral Valve The mitral valve is normal in structure. Trace mitral regurgitation. No evidence of mitral valve stenosis. Tricuspid Valve The tricuspid valve is normal in structure. Mild tricuspid regurgitation. Estimated PAP is 35 mmHg. [facility] [address] [place] [address] 2 D/M-MODE ECHOCARDIOGRAM Name: YAMILERAH KANDI Room #: 236-P [facility] IN M.R.#: [id number] Admission: 11/07/20 Attend Phys: Jose E Patel MD Discharge: Date of : 80 Report #: [id number] Pulmonic Valve The pulmonary valve is normal in structure. Trace pulmonic regurgitation. Great Vessels The aortic root is normal in size. The ascending aorta is normal in size. IVC is borderline dilated and collapses <50% with inspiration. Pericardium There is no pericardial effusion. <Conclusion> The left ventricle is normal size. There is normal left ventricular wall thickness. Left ventricular systolic function is normal. The left ventricular diastolic function is normal. The right ventricle is normal size. The left atrium size is normal. The aortic valve is normal in structure. Trace mitral regurgitation. Mild tricuspid regurgitation. <ELECTRONICALLY SIGNED> By: Matt Momin MD 11/12/20 1153 1153 1153 Matt Momin MD /INF
[2020-11-12 12:14] LABS: ABSOLUTE NEUTROPHILS 2.5 thou/uL (1.4-8.2)
[2020-11-12 12:15] LABS: ANISOCYTOSIS 1+; PLATELET ESTIMATE NORMAL; POLYCHROMASIA SLIGHT
--- NOTE | 2020-11-12 12:15 | NUR ---
discussed during los and am rounds. having abg labs, echo, and eeg. remains on vent, possible going comfort care and organ donation process in place after neuro speaks with his mom and family. family wants organ donation if able. will cont following as needed for dc needs. pt mom not at bedside during this visit. cm cont to wear face mask and shield during visit. bedside nurse has been in contact with pt mom.
[2020-11-12 14:15] LABS: BE(vivo) -2.8 mmol/L (-2 to +3); HCO3 24.1 mmol/L (22.0-26.0); PCO2 50.2 mmHg (35.0-45.0); PO2 175.3 mmHg (80.0-100.0)
[2020-11-12 14:20] LABS: BE(vivo) -2.9 mmol/L (-2 to +3); HCO3 25.3 mmol/L (22.0-26.0); PCO2 60.5 mmHg (35.0-45.0); PO2 191.7 mmHg (80.0-100.0); sO2 99.1 % (92.0-98.0)
== END 2020-11-12 14:22 | DRG 207 ==
LOC: ER 01:38 → ICU 03:28 → EROBS 03:28 → ICU 04:40
PROVIDERS: Emergency Medicine; Hospitalist; Internal Medicine Pulmonary Disease; Nurse Practitioner Family; Psychiatry & Neurology Neurology; ADMIT Hospitalist; ATTEND Hospitalist
DX: J96.01 Acute respiratory failure with hypoxia (principal); N17.0 Acute kidney failure with tubular necrosis; K72.00 Acute and subacute hepatic failure without coma; M62.82 Rhabdomyolysis; I42.9 Cardiomyopathy, unspecified; E87.2 Acidosis; G93.1 Anoxic brain damage, not elsewhere classified; E22.2 Syndrome of inappropriate secretion of antidiuretic hormone; I46.9 Cardiac arrest, cause unspecified; F31.9 Bipolar disorder, unspecified; F20.9 Schizophrenia, unspecified; Z20.822 Contact with and (suspected) exposure to COVID-19; E87.6 Hypokalemia; F12.10 Cannabis abuse, uncomplicated; N18.9 Chronic kidney disease, unspecified; E87.5 Hyperkalemia; F14.10 Cocaine abuse, uncomplicated; R73.9 Hyperglycemia, unspecified; D64.9 Anemia, unspecified; Z79.899 Other long term (current) drug therapy; Z79.51 Long term (current) use of inhaled steroids
CPT/HCPCS: 10078

== ENCOUNTER 2020-11-12 15:08 | Observation (INO) | payer OTHER ==
[~2020-11-12 15:08] MED LIST changes: +BENZTROPINE MES1 MG PO; +CLARITIN10 M3 PO; +DIVALPROEX SOD500 M1 PO; +PROAIR HFA8.5 GM INH
[2020-11-12 16:09] LABS: HEMOGLOBIN 10.8 gm/dL (14.0-18.0); MCH 31.2 pg (26.0-34.0); MCHC 34.9 g/dL (28.0-37.0); MCV 89.5 fL (80.0-100.0); PLATELET COUNT 153 thou/uL (150-400); RBC 3.46 mil/uL (4.50-6.00); RDW 14.1 % (10.5-14.5)
[2020-11-12 16:28] LABS: APTT 31.8 Seconds (24.5-32.8); INR 0.94; PROTIME 10.3 Seconds (9.3-11.4)
[2020-11-12 16:33] LABS: ALBUMIN 1.7 g/dL (3.4-5.0); AMYLASE 51 U/L (25-115); DIRECT BILIRUBIN 0.1 mg/dL (<0.1-0.2); GGTP 117 U/L (15-85); LIPASE 63 U/L (73-393); MAGNESIUM 2.1 mg/dL (1.8-2.4); PHOSPHORUS 4.1 mg/dL (2.6-4.7); SGOT 36 U/L (15-37); SGPT 34 U/L (16-63); TOTAL BILIRUBIN 0.4 mg/dL (0.2-1.0); TOTAL PROTEIN 5.5 g/dL (6.4-8.2); TROPONIN-I <0.06 ng/mL (<0.06)
[2020-11-12 16:35] LABS: FIBRINOGEN > 860 mg/dL (210-360)
[2020-11-12 16:41] LABS: PLATELET ESTIMATE NORMAL
[2020-11-12 23:11] LABS: HEMATOCRIT 36.3 % (42.0-52.0); HEMOGLOBIN 12.6 gm/dL (14.0-18.0); MCH 31.2 pg (26.0-34.0); MCHC 34.6 g/dL (28.0-37.0); MCV 90.2 fL (80.0-100.0); PLATELET COUNT 167 thou/uL (150-400); RBC 4.03 mil/uL (4.50-6.00); RDW 14.5 % (10.5-14.5); WBC 7.5 thou/uL (4.0-11.0)
[2020-11-12 23:12] LABS: ABSOLUTE NEUTROPHILS 7.1 thou/uL (1.4-8.2); EOSINOPHILS 0.5 % (0.0-3.0); POLYS 94.5 % (36.0-66.0)
[2020-11-12 23:24] LABS: ALBUMIN 1.9 g/dL (3.4-5.0); DIRECT BILIRUBIN 0.2 mg/dL (<0.1-0.2); PHOSPHORUS 4.4 mg/dL (2.6-4.7); TOTAL BILIRUBIN 0.5 mg/dL (0.2-1.0); TOTAL PROTEIN 6.5 g/dL (6.4-8.2)
[2020-11-12 23:31] LABS: INR 0.94; PROTIME 10.3 Seconds (9.3-11.4)
[2020-11-12 23:33] LABS: FIBRINOGEN > 860 mg/dL (210-360)
[2020-11-13 05:09] LABS: HEMATOCRIT 36.1 % (42.0-52.0); MCH 30.1 pg (26.0-34.0); MCHC 33.2 g/dL (28.0-37.0); MCV 90.9 fL (80.0-100.0); MONOCYTES 1.4 % (1.0-8.0); PLATELET COUNT 176 thou/uL (150-400); POLYS 96.6 % (36.0-66.0); RBC 3.97 mil/uL (4.50-6.00); RDW 14.5 % (10.5-14.5); WBC 10.3 thou/uL (4.0-11.0)
[2020-11-13 05:15] LABS: INR 0.98; PROTIME 10.7 Seconds (9.3-11.4)
[2020-11-13 05:47] LABS: FIBRINOGEN > 860 mg/dL (210-360)
[2020-11-13 05:52] LABS: ALBUMIN 1.8 g/dL (3.4-5.0); DIRECT BILIRUBIN 0.1 mg/dL (<0.1-0.2); MAGNESIUM 2.1 mg/dL (1.8-2.4); TOTAL BILIRUBIN 0.4 mg/dL (0.2-1.0); TOTAL PROTEIN 6.3 g/dL (6.4-8.2)
--- NOTE | 2020-11-13 07:02 | NUR ---
ASSUMED CARE AT 0700, ASSESSMENT AND VITAL SIGNS COMPLETED PER ICU PROTOCOL. MTN DONOR CASE, MTN PRESENT X 2 PERSONNEL. RN WILL CONTINUE TO MONITOR.
--- NOTE | 2020-11-13 09:40 | EKG ---
[facility] [place] [address] ELECTROCARDIOGRAM REPORT Name: RAH OVALLE KANDI ORONA Room #: 236-[facility] M.RKerrie#: [id number] Admission: 11/12/20 Attend Phys: Kincaid [employer] Discharge: 11/14/20 Date of : 80 Report #: [id number] [facility] Test Date: 2020-11-12 Test Time: 21:18:58 Pat Name: RAH LOZANO Department: Room: 236 P Gender: M Speech Language Therapist: UNKNOWN?? : 1980 Requested By: [employer] Order Number: [id number] MD: Donal Gamble Measurements Intervals [place] Rate: 87 P: 36 MN: 126 QRS: 37 QRSD: 72 T: 17 QT: 340 QTc: 409 Interpretive Statements Sinus rhythm Possible anteroseptal infarct, old No previous ECG available for comparison Electronically Signed On 11-13-2020 9:39:49 CDT by Donal Gamble [email or web address] <ELECTRONICALLY SIGNED> By: Donal Gamble MD, [facility] 11/13/20 0939 2118 Donal Gmable MD, [facility] /EPI
[2020-11-13 10:53] LABS: BASOPHILS 0.1 % (0.0-2.0); HEMATOCRIT 36.9 % (42.0-52.0); HEMOGLOBIN 12.6 gm/dL (14.0-18.0); LYMPHOCYTES 3.5 % (24.0-44.0); MCH 30.4 pg (26.0-34.0); MCHC 34.2 g/dL (28.0-37.0); MCV 88.8 fL (80.0-100.0); MONOCYTES 2.7 % (1.0-8.0); PLATELET COUNT 167 thou/uL (150-400); POLYS 93.7 % (36.0-66.0); RBC 4.15 mil/uL (4.50-6.00); RDW 14.7 % (10.5-14.5); WBC 8.5 thou/uL (4.0-11.0)
[2020-11-13 11:12] LABS: DIRECT BILIRUBIN 0.1 mg/dL (<0.1-0.2); GGTP 133 U/L (15-85); MAGNESIUM 2.2 mg/dL (1.8-2.4); SGOT 61 U/L (15-37); SGPT 34 U/L (16-63); TOTAL BILIRUBIN 0.3 mg/dL (0.2-1.0); TROPONIN-I <0.06 ng/mL (<0.06)
[2020-11-13 11:17] LABS: APTT 27.9 Seconds (24.5-32.8); INR 0.99; PROTIME 10.8 Seconds (9.3-11.4)
--- NOTE | 2020-11-13 12:03 | CATHLAB ---
[facility] [place] [address] INVASIVE PROCEDURE REPORT Name: RAH OVALLE Room #: 236-P ALIREZA Antony#: [id number] Admission: 11/12/20 Attend Phys: [place] [facility] Discharge: 11/14/20 Date of : 80 Report #: [id number] REPORT FOR: cc: FAM - Family physician unknown FAM - Family physician unknown Matt Momin MD ~ APPROVED REPORT Study performed: 11/12/2020 15:35:37 Patient Details Patient Status: In-Patient Room #: 236 The patient is a 80 year-old male Event Personnel Matt Momin Gyroscopic Instrument Tester, Vincent Astudillo RN, Irina Brown RTR Monitor, Adelaide Azul RTR, PLANNING AIDE Scrub Procedures Performed Art Access - R femoral artery* Left Heart Cath w/or w/o Coronaries [id number] [facility] Hemostasis w/ Mynx Indication The patient presented with an out of hospital arrest and found to have severe anoxic encephalopathy. Cardiac catheterization is being performed to assess for candidacy for organ transplant. Risk Factors Hypertension, Tobacco History () Procedure Narrative The Right Groin^ was infiltrated with 1% Lidocaine subcutaneous anesthesia. A PINNACLE 6FR Sheath #[id number] sheath was inserted into the RFA^. Coronary angiography was performed using coronary diagnostic catheters. The right coronary system was accessed and visualized with a JR4 catheter. The left coronary system was accessed and visualized with a JL4 catheter. The left ventricle was accessed and visualized with a PIGTAIL catheter. Left ventriculogram was performed in 30 degree projection. Closure device was deployed with a Fr MYNXGRIP 6/7F #[id number]. The patient tolerated the procedure well and there were no complications associated with the procedure. There was no hematoma. Intraoperative Conscious Sedation [facility] [address] [place] [address] INVASIVE PROCEDURE REPORT Name: MARTARAHVERÓNICAYAMILE Room #: 236-P [facility] IN M.R.#: [id number] Admission: 11/12/20 Attend Phys: [place] [facility] Discharge: Date of : 80 Report #: [id number] Sedation start time: 16:21 Case end Time: 16:45 Fluoro Time: 2.19 minutes Dose: DAP 3600.00 cGycm2 399 mGy Contrast Type and Amount: Omnipaque 105 ml Coronary Angiography The patient's coronary anatomy is co- dominant. Diagnostic Cath Left Main The left main artery is a large-caliber vessel, appears angiographically normal. LAD The LAD is a moderate-sized caliber vessel, traverses the anterior wall and wraps around the apex. It terminates in the mid inferior wall. This vessel appears angiographically normal. Diagonal 1 This is a small to moderate-sized caliber vessel, with no flow-limiting lesions. Diagonal 2 This is a moderate-sized caliber vessel, appears angiographically normal. Circumflex The left circumflex artery is a codominant vessel, appears angiographically normal. OM1 This is a small to moderate-sized caliber vessel, with no flow-limiting lesions. OM2 This is a moderate-sized caliber vessel, appears angiographically normal. Right Coronary The RCA is a moderate-sized caliber vessel, appears angiographically normal. R PDA This is a small to moderate-sized caliber vessel, with no flow-limiting lesions. This vessel terminates in the mid inferior wall. Left Ventriculography The left ventricle is normal in size with normal contractility. The left ventricular ejection fraction is estimated to be 50-55%. Hemodynamics The aortic pressure is 150/96 mmHg with a mean of 119 mmHg. The left ventricular pressure is 164/18 mmHg with a mean of mmHg. The left ventricular end diastolic pressure is 26 mmHg. Conclusion 1. Angiographically normal coronary arteries. [facility] [address] [place] [address] INVASIVE PROCEDURE REPORT Name: RAH LOZANO NICKSON Room #: 236-P [facility] IN M.R.#: [id number] Admission: 11/12/20 Attend Phys: [place] [facility] Discharge: Date of : 80 Report #: [id number] 2. This is a codominant system. 3. There is normal LV systolic function. <ELECTRONICALLY SIGNED> By: Matt Momin MD 11/13/20 1203 D: [id number] Matt Momin MD /INF
[2020-11-13 12:06] LABS: AMYLASE 431 U/L (25-115); LIPASE 42 U/L (73-393)
[2020-11-13 17:18] LABS: ABSOLUTE NEUTROPHILS 6.3 thou/uL (1.4-8.2); BASOPHILS 0.1 % (0.0-2.0); HEMATOCRIT 35.2 % (42.0-52.0); HEMOGLOBIN 12.1 gm/dL (14.0-18.0); LYMPHOCYTES 4.8 % (24.0-44.0); MCH 30.7 pg (26.0-34.0); MCHC 34.4 g/dL (28.0-37.0); MONOCYTES 8.1 % (1.0-8.0); PLATELET COUNT 180 thou/uL (150-400); RBC 3.96 mil/uL (4.50-6.00); RDW 14.8 % (10.5-14.5); WBC 7.2 thou/uL (4.0-11.0)
[2020-11-13 17:36] LABS: APTT 26.7 Seconds (24.5-32.8); INR 1.02; PROTIME 11.1 Seconds (9.3-11.4)
[2020-11-13 17:38] LABS: ALBUMIN 1.9 g/dL (3.4-5.0); AMYLASE 418 U/L (25-115); DIRECT BILIRUBIN 0.1 mg/dL (<0.1-0.2); GGTP 129 U/L (15-85); LIPASE 46 U/L (73-393); MAGNESIUM 2.5 mg/dL (1.8-2.4); PHOSPHORUS 4.5 mg/dL (2.6-4.7); SGOT 65 U/L (15-37); SGPT 32 U/L (16-63); TOTAL BILIRUBIN 0.4 mg/dL (0.2-1.0); TROPONIN-I <0.06 ng/mL (<0.06)
[2020-11-13 17:57] LABS: FIBRINOGEN > 860 mg/dL (210-360)
[2020-11-13 19:18] LABS: URINE BILIRUBIN NEGATIVE (Negative); URINE BLOOD TRACE (Negative); URINE CLARITY CLEAR; URINE COLOR YELLOW; URINE GLUCOSE-RANDOM* TRACE (Negative); URINE KETONES NEGATIVE (Negative); URINE LEUKOCYTES NEGATIVE (Negative); URINE NITRITE NEGATIVE (Negative); URINE PROTEIN (DIPSTICK) NEGATIVE (Negative); URINE SPECIFIC GRAVITY <= 1.005 (1.005-1.035); URINE UROBILINOGEN 0.2 E.U./dl (0.2-1.0)
[2020-11-13 22:52] LABS: ABSOLUTE NEUTROPHILS 5.5 thou/uL (1.4-8.2); BASOPHILS 0.2 % (0.0-2.0); HEMOGLOBIN 11.7 gm/dL (14.0-18.0); LYMPHOCYTES 7.6 % (24.0-44.0); MCH 29.7 pg (26.0-34.0); MCHC 33.4 g/dL (28.0-37.0); MCV 89.2 fL (80.0-100.0); MONOCYTES 12.8 % (1.0-8.0); PLATELET COUNT 191 thou/uL (150-400); POLYS 79.4 % (36.0-66.0); RBC 3.93 mil/uL (4.50-6.00); RDW 14.7 % (10.5-14.5); WBC 6.9 thou/uL (4.0-11.0)
[2020-11-13 23:00] LABS: ALBUMIN 1.8 g/dL (3.4-5.0); DIRECT BILIRUBIN 0.2 mg/dL (<0.1-0.2); MAGNESIUM 2.4 mg/dL (1.8-2.4); PHOSPHORUS 2.8 mg/dL (2.6-4.7); TOTAL BILIRUBIN 0.5 mg/dL (0.2-1.0); TOTAL PROTEIN 6.6 g/dL (6.4-8.2)
[2020-11-13 23:01] LABS: FIBRINOGEN > 860 mg/dL (210-360); INR 1.04; PROTIME 11.3 Seconds (9.3-11.4)
== END 2020-11-14 02:00 | disposition swing bed (61) ==
LOC: ICUDONOR 15:08 → ICU 15:21 → EDBD 15:21 → ICU 11-14 02:00
DX: Z00.5 Encounter for examination of potential donor of organ and tissue (principal); Z20.822 Contact with and (suspected) exposure to COVID-19; G93.1 Anoxic brain damage, not elsewhere classified; I10 Essential (primary) hypertension; Z87.891 Personal history of nicotine dependence
CPT/HCPCS: 50093; 50101; 50554; 56526; 56527; 56528; 56531; 56760; 57103; 57130; 62110; 62900; 85010; 85030